=== PATIENT | male | born 1965 | race Caucasian/White ===

== ENCOUNTER 2017-12-12 09:20 | Emergency (ER) | payer OTHER ==
[2017-12-12 10:14] LABS: Absolute Lymphocytes (CBC) 1.4 K/uL (0.7-4.9); Absolute Monocytes 1.4 K/uL (0.1-1.3); Absolute Neutrophil 8.1 K/uL (1.8-8.0); Basophils % 0.7 % (0-1.3); Eosinophils % 0.4 % (0-4.4); Hematocrit 51.3 % (39.6-49.0); Lymphocytes % 12.5 % (15.3-44.8); MCH 30.6 pg (27.0-35.0); MCV 90.3 fL (80-100); MPV 8.7 fL (7.6-11.3); Monocytes % 12.9 % (3.3-12.3); RBC Red Blood Cell Count 5.68 M/uL (4.33-5.43)
[2017-12-12 10:24] LABS: Protime INR 0.95
[2017-12-12 10:29] LABS: Bicarbonate 23 mEq/L (21-31); Glucose Level 122 mg/dL (65-120); Potassium 4.2 mEq/L (3.6-5.0); Sodium Level 134 mEq/L (135-145)
--- NOTE | 2017-12-12 10:33 | RAD REPORT ---
EXAM DESCRIPTION: RAD - Chest Single View - 12/12/2017 9:54 am CLINICAL HISTORY: Chest pain, shortness of breath, dyspnea COMPARISON: October 24 TECHNIQUE: AP portable chest image was obtained 0944 hours . FINDINGS: Lungs are clear. Heart and vasculature are normal. No measurable pleural effusion and no p neumothorax. No gross bony abnormality seen. No acute aortic finding. Single wire pacemaker/defibrill ator is in place. This is similar to the comparison. Trachea is midline. No mediastinal or hilar abno rmality. IMPRESSION: No acute cardiopulmonary process. No significant change from comparison.
[2017-12-12 10:35] LABS: BUN Blood Urea Nitrogen 13 mg/dL (6-20)
[2017-12-12 10:36] LABS: ALT/SGPT 30 IU/L (10-60); AST/SGOT 37 IU/L (10-42); Albumin 4.7 g/dL (3.2-5.5); Alkaline Phosphatase 66 IU/L (42-121); Bilirubin Direct 0.2 mg/dL (0-0.2); Bilirubin Total 1.7 mg/dL (0.3-1.2); Creatine Phosphokinase 89 IU/L (22-269); Glomerular Filtration Rate > 90 mL/min (=/>90); Magnesium 1.9 mg/dL (1.8-2.5); Protein, Total 8.1 g/dL (6.0-8.3)
[2017-12-12 10:38] LABS: Digoxin Level < 0.1 ng/ml (1.0-2.0)
--- NOTE | 2017-12-12 12:23 | EDPHYS ---
Physician Documentation [facility] Name: Renny Galeas Age: 52 yrs Sex: Male : 1965 Arrival Date: 12/12/2017 Time: 09:21 Bed 6 Private MD: Alaina Bynum ED Physician Shantanu Shafer HPI: 12/12 10:00 This 52 yrs old Male presents to ER via Ambulatory with complaints of jr8 Shortness Of Breath. 10:00 The patient has shortness of breath at rest. Onset: The symptoms/episode began/occurred jr8 acutely, last night. Duration: The symptoms are continuous, and are steadily getting worse. The patient's shortness of breath is aggravated by exertion, supine position, walking. Associated signs and symptoms: Pertinent positives: chest pain, diaphoresis. Severity of symptoms: At their worst the symptoms were moderate in the emergency department the symptoms are unchanged. It is unknown whether or not the patient has had similar symptoms in the past. The patient has not recently seen a physician. Historical: - Allergies: 09:36 Codeine; ss 09:36 Demerol; ss - PMHx: 09:36 Atrial Fib; CHF; CVA; etoh abuse; Hypertension; Myocardial infarction; Pacemaker; ss - PSHx: 09:36 Heart stents; pacemaker/ defib; ss ROS: 10:00 Eyes: Negative for injury, pain, redness, and discharge, ENT: Negative for injury, jr8 pain, and discharge, Neck: Negative for injury, pain, and swelling, Abdomen/GI: Negative for abdominal pain, nausea, vomiting, diarrhea, and constipation, Back: Negative for injury and pain, MS/Extremity: Negative for injury and deformity, Skin: Negative for injury, rash, and discoloration, Neuro: Negative for headache, weakness, numbness, tingling, and seizure. 10:00 Cardiovascular: Positive for chest pain, orthopnea, Negative for edema, palpitations, paroxysmal nocturnal dyspnea. 10:00 Respiratory: Positive for orthopnea, shortness of breath. Exam: 10:00 Eyes: Pupils equal round and reactive to light, extra-ocular motions intact. Lids and jr8 lashes normal. Conjunctiva and sclera are non-icteric and not injected. Cornea within normal limits. Periorbital areas with no swelling, redness, or edema. ENT: Nares patent. No nasal discharge, no septal abnormalities noted. Tympanic membranes are normal and external auditory canals are clear. Oropharynx with no redness, swelling, or masses, exudates, or evidence of obstruction, uvula midline. Mucous membranes moist. Neck: Trachea midline, no thyromegaly or masses palpated, and no cervical lymphadenopathy. Supple, full range of motion without nuchal rigidity, or vertebral point tenderness. No Meningismus. Cardiovascular: Regular rate and rhythm with a normal S1 and S2. No gallops, murmurs, or rubs. Normal PMI, no JVD. No pulse deficits. Respiratory: Lungs have equal breath sounds bilaterally, clear to auscultation and percussion. No rales, rhonchi or wheezes noted. No increased work of breathing, no retractions or nasal flaring. Abdomen/GI: Soft, non-tender, with normal bowel sounds. No distension or tympany. No guarding or rebound. No evidence of tenderness throughout. Back: No spinal tenderness. No costovertebral tenderness. Full range of motion. Skin: Warm, sweaty, with normal turgor. Normal color with no rashes, no lesions, and no evidence of cellulitis. MS/ Extremity: Pulses equal, no cyanosis. Neurovascular intact. Full, normal range of motion. Neuro: Awake and alert, GCS 15, oriented to person, place, time, and situation. Cranial nerves II-XII grossly intact. Motor strength 5/5 in all extremities. Sensory grossly intact. Cerebellar exam normal. Normal gait. Vital Signs: 09:36 BP 118 / 96; Pulse 84; Resp 18; Pulse Ox 98% on R/A; Weight 79.38 kg (R); Height 5 ft. ss 8 in. (172.72 cm); Pain 4/10; 09:45 Temp 98.4; sg 10:15 BP 108 / 85; Pulse 78; Resp 18; Pulse Ox 95% on R/A; sv 12:12 BP 119 / 87; Pulse 67; Resp 19; Pulse Ox 98% on R/A; sv 09:36 Body Mass Index 26.61 (79.38 kg, 172.72 cm) MDM: 09:31 Patient medically screened. jr8 12:19 Data reviewed: vital signs, nurses notes, lab test result(s), EKG, radiologic studies, jr8 plain films, and as a result, I will discharge patient. Data interpreted: Pulse oximetry: on room air is 98 %. Interpretation: normal. Counseling: I had a detailed discussion with the patient and/or guardian regarding: the historical points, exam findings, and any diagnostic results supporting the discharge/admit diagnosis, lab results, radiology results, the need for outpatient follow up, a machine i coremaker, a family practitioner, to return to the emergency department if symptoms worsen or persist or if there are any questions or concerns that arise at home. ED course: Patient feeling much better. No acute findings on imaging or labs. Last alcohol was 6 pack yesterday. Has not had any since then. Could be mild withdrawal. Advised to f/u with cardiology and medicine. If worse to come back . 12/12 09:38 Order name: CPK; Complete Time: 10:42 12/12 09:38 Order name: Basic Metabolic Panel; Complete Time: 10:42 12/12 09:38 Order name: BNP; Complete Time: 10:42 12/12 09:38 Order name: CBC with Diff; Complete Time: 10:38 12/12 09:38 Order name: LFT's; Complete Time: 10:42 12/12 09:38 Order name: Magnesium; Complete Time: 10:12/12 09:38 Order name: PT-INR; Complete Time: 10:38 12/12 09:38 Order name: Ptt, Activated; Complete Time: 10:38 12/12 09:38 Order name: Troponin (emerg Dept Use Only); Complete Time: 10:38 12/12 09:38 Order name: XRAY Chest (1 view); Complete Time: 10:38 12/12 09:38 Order name: EKG; Complete Time: 09:38 12/12 09:38 Order name: Digoxin; Complete Time: 10:42 12/12 10:43 Order name: ETOH Level 12/12 10:43 Order name: Alcohol Serum/Plasma; Complete Time: 12:08 EDDE 12/12 09:38 Order name: Cardiac monitoring; Complete Time: 09:42 12/12 09:38 Order name: EKG - Nurse/Tech; Complete Time: :42 12/12 09:38 Order name: O2 Per Protocol; Complete Time: 09:42 jr8 12/12 09:38 Order name: O2 Sat Monitoring; Complete Time: 09:42 jr8 Administered Medications: No medications were administered Disposition: 14:45 Co-signature as Attending Physician, Shantanu Shafer MD. Disposition: 12/12/17 12:22 Discharged to Home. Impression: Dyspnea. - Condition is Stable. - Discharge Instructions: Shortness of Breath. - Medication Reconciliation Form, Thank You Letter, Antibiotic Education, Prescription Opioid Use form. - Follow up: Alaina Bynum MD; When: Tomorrow; Reason: Recheck today's complaints, Continuance of care, Re-evaluation by your physician. - Problem is new. - Symptoms have improved. Signatures: Dispatcher [employer] EDMS Alexus Monzon RN RN Anthony Curiel, JERAMY PA jr8 Shantanu Shafer MD MD Corrections: (The following items were deleted from the chart) 10:07 10:00 Eyes: Pupils equal round and reactive to light, extra-ocular motions intact. Lids jr8 and lashes normal. Conjunctiva and sclera are non-icteric and not injected. Cornea within normal limits. Periorbital areas with no swelling, redness, or edema. ENT: Nares patent. No nasal discharge, no septal abnormalities noted. Tympanic membranes are normal and external auditory canals are clear. Oropharynx with no redness, swelling, or masses, exudates, or evidence of obstruction, uvula midline. Mucous membranes moist. Neck: Trachea midline, no thyromegaly or masses palpated, and no cervical lymphadenopathy. Supple, full range of motion without nuchal rigidity, or vertebral point tenderness. No Meningismus. Cardiovascular: Regular rate and rhythm with a normal S1 and S2. No gallops, murmurs, or rubs. Normal PMI, no JVD. No pulse deficits. Respiratory: Lungs have equal breath sounds bilaterally, clear to auscultation and percussion. No rales, rhonchi or wheezes noted. No increased work of breathing, no retractions or nasal flaring. Abdomen/GI: Soft, non-tender, with normal bowel sounds. No distension or tympany. No guarding or rebound. No evidence of tenderness throughout. Back: No spinal tenderness. No costovertebral tenderness. Full range of motion. Skin: Warm, dry with normal turgor. Normal color with no rashes, no lesions, and no evidence of cellulitis. MS/ Extremity: Pulses equal, no cyanosis. Neurovascular intact. Full, normal range of motion. Neuro: Awake and alert, GCS 15, oriented to person, place, time, and situation. Cranial nerves II-XII grossly intact. Motor strength 5/5 in all extremities. Sensory grossly intact. Cerebellar exam normal. Normal gait. jr8 12:22 12:19 ED course: Patient feeling much better. No acute findings on imaging or labs. jr8 Last alcohol was 6 pack yesterday. Has not had any since then. Could be mild withdrawal. . jr8
--- NOTE | 2017-12-12 12:23 | ER ---
Nurse's Notes [facility] Name: Renny Galeas Age: 52 yrs Sex: Male : 1965 Arrival Date: 12/12/2017 Time: 09:21 Bed 6 Private MD: Alaina Bynum Diagnosis: Dyspnea Presentation: 12/12 09:35 Presenting complaint: Patient states: shortness of breath and chest discomfort that ss began last night. Transition of care: patient was not received from another setting of care. Onset of symptoms was December 11, 2017. Care prior to arrival: None. 09:35 Method Of Arrival: Ambulatory ss 09:35 Acuity: INNA 3 ss Historical: - Allergies: 09:36 Codeine; ss 09:36 Demerol; ss - PMHx: 09:36 Atrial Fib; CHF; CVA; etoh abuse; Hypertension; Myocardial infarction; Pacemaker; ss - PSHx: 09:36 Heart stents; pacemaker/ defib; ss Vital Signs: 09:36 BP 118 / 96; Pulse 84; Resp 18; Pulse Ox 98% on R/A; Weight 79.38 kg (R); Height 5 ft. ss 8 in. (172.72 cm); Pain 4/10; 09:45 Temp 98.4; sg 10:15 BP 108 / 85; Pulse 78; Resp 18; Pulse Ox 95% on R/A; sv 12:12 BP 119 / 87; Pulse 67; Resp 19; Pulse Ox 98% on R/A; sv 09:36 Body Mass Index 26.61 (79.38 kg, 172.72 cm) ED Course: 09:21 Patient arrived in ED. as 09:21 Alaina Bynum MD is Private Physician. as 09:31 Anthony Harrell PA is PHCP. jr8 09:31 Shantanu Shafer MD is Attending Physician. jr8 09:35 Vikas Delatorre RN is Primary Nurse. sg 09:35 Triage completed. ss 09:36 Arm band placed on right wrist. ss 09:42 EKG done, by computed tomography technician. reviewed by Anthony DESHPANDE. tc 09:51 XRAY Chest (1 view) In Process Unspecified. EDMS 09:58 Initial lab(s) drawn, by ED staff, sent to lab. IV inserted by [employer] boiler control technician. Inserted sg saline lock: 22 gauge in right hand, using aseptic technique. Blood collected. 12:22 Alaina Bynum MD is Referral Physician. guerda Administered Medications: No medications were administered Outcome: : Discharge ordered by . guerda 13:17 Patient left the ED. Signatures: Dispatcher [employer] EDMS Angie Almanza RN RN sv Gay, Steven, RN RN sg Martinez, Amelia as Smirch, Shelby, RN RN Anthony Harrell PA PA jr8 Callis, Tiffany, silk spooler EKG Ttc
[2017-12-12 13:25] VITALS: TEMP 98.4
[2017-12-12 13:27] VITALS: BP 119/87; O2SAT 98
--- NOTE | 2017-12-12 16:29 | EKG ---
Test Date: 2017-12-12 Test Time: 09:38:53 Car Dumper: PAULA MEASUREMENT RESULTS: Intervals: Rate: 85 ME: 164 QRSD: 108 QT: 416 QTc: 495 Roxana: P: 51 ME: 164 QRS: -15 T: 97 INTERPRETIVE STATEMENTS: Normal sinus rhythm Possible Left atrial enlargement Left ventricular hypertrophy Cannot rule out Septal infarct, age undetermined T wave abnormality, consider lateral ischemia Abnormal ECG Compared to ECG 10/24/2017 13:02:17 Myocardial infarct finding now present Intraventricular conduction delay no longer present T-wave abnormality still present Possible ischemia still present Electronically Signed On 12-12-17 16:27:36 CDT by Lenard Mistry
== END 2017-12-12 13:17 | disposition home or self-care (01) ==
LOC: ER 09:20
DX: R06.00 Dyspnea, unspecified (principal); I10 Essential (primary) hypertension; Z88.5 Allergy status to narcotic agent; Z88.6 Allergy status to analgesic agent; Z95.818 Presence of other cardiac implants and grafts; Z95.0 Presence of cardiac pacemaker; I25.2 Old myocardial infarction
CPT/HCPCS: 36415; 71045; 80048; 80076; 80162; 80320; 82550; 83735; 83880; 84484; 85025; 85610; 85730; 93005; 99284